=== PATIENT | male | born 1935 | race Caucasian/White ===

== ENCOUNTER 2017-01-05 16:24 | Inpatient (IN) | payer OTHER, MEDICAID ==
[~2017-01-05] VITALS: Ht 162.6 cm; Wt 131.5 kg
[~2017-01-05 16:24] MED LIST: ACT15 PO; AMLODIPINE BESYL5 M1 PO; CELEBREX200 MG PO; CLOPIDOGREL75 M1 PO; COR6 PO; ENALAPRIL MALEA20 MG PO; LASIX40 MG PO; METFORMIN HCL1000 MG PO; ZOCOR10 MG PO
[2017-01-05 17:21] LABS: BASOPHIL % 0.7 % (0-2); PLATELET COUNT 216 x10^3mcL (130-400)
[2017-01-05 17:26] LABS: CALCIUM 8.5 mg/dL (8.5-10.1); CARBON DIOXIDE 31.6 mmol/L (21-32); CHLORIDE SERUM 107 mmol/L (98-107); CREATININE SERUM 1.6 mg/dL (0.7-1.3); GLUCOSE SERUM 103 mg/dL (74-106); POTASSIUM SERUM 4.8 mmol/L (3.5-5.1); SODIUM SERUM 145 mmol/L (136-145)
[2017-01-05 17:30] LABS: ALKALINE PHOSPHATASE 111 U/L (46-116); ALT/SGPT 8 U/L (16-63); AST/SGOT 16 U/L (15-37); BILIRUBIN TOTAL 0.2 mg/dL (0.20-1.00); TOTAL PROTEIN, SERUM 7.7 g/dL (6.4-8.2)
[2017-01-05 17:33] LABS: ALBUMIN 2.7 g/dL (3.4-5.0)
[2017-01-05 17:54] LABS: CK-MB < 0.5 ng/mL (0-3.6); CREATINE KINASE 142 U/L (39-308)
[2017-01-05] MEDS ORDERED: ADULT LOW DOSE81 MG PO (18:11)
[2017-01-05] MEDS ORDERED: ALDACTONE25 MG PO (18:11)
[2017-01-05] MEDS ORDERED: EPZICOM1 TAB (18:14)
[2017-01-05] MEDS ORDERED: FERROUS SULFAT325 M2 PO (18:14)
[2017-01-05 20:39] LABS: CHOLESTEROL/HDL RATIO 2.5
[2017-01-05 20:42] LABS: T3 TOTAL 0.97 ng/mL
[2017-01-05 20:43] LABS: FREE T4 1.21 ng/dL (0.76-1.46); T4(THYROXINE) 5.8 ug/dL (4.7-13.3)
[2017-01-05 21:10] VITALS: BP 115/28
[2017-01-05 22:01] VITALS: BP 115/78
[2017-01-06 03:30] VITALS: BP 104/35
[2017-01-06 04:38] LABS: microscopic required? YES; urine erythrocyte TRACE (NEGATIVE)
[2017-01-06 05:25] VITALS: Ht 162.6 cm; Wt 131.5 kg
[2017-01-06 06:08] LABS: BASOPHIL % 0.4 % (0-2); PLATELET COUNT 190 x10^3mcL (130-400); RED CELL DISTRIBUTION WIDTH 14.1 % (11.5-14.5)
[2017-01-06 06:35] LABS: CALCIUM 8.5 mg/dL (8.5-10.1); CARBON DIOXIDE 30.4 mmol/L (21-32); CHLORIDE SERUM 104 mmol/L (98-107); CREATININE SERUM 1.5 mg/dL (0.7-1.3); GLUCOSE SERUM 105 mg/dL (74-106); MAGNESIUM 1.8 mg/dL (1.8-2.4); PHOSPHOROUS 3.7 mg/dL (2.5-4.9); POTASSIUM SERUM 4.1 mmol/L (3.5-5.1); SODIUM SERUM 140 mmol/L (136-145)
[2017-01-06 08:44] VITALS: BP 131/56
[2017-01-06 09:37] LABS: TOTAL IRON BINDING CAPACITY 310 ug/dL (250-450)
[2017-01-06 09:44] LABS: IRON 17 ug/dL (65-170); RED BLOOD CELLS 2.88 M/mm3 (4.52-5.90)
[2017-01-06 13:06] VITALS: BP 149/53
[2017-01-06 16:38] VITALS: BP 113/53
[2017-01-06 21:19] VITALS: BP 107/41
[2017-01-07 06:03] VITALS: BP 133/58
[2017-01-07 06:16] LABS: BASOPHIL % 0.6 % (0-2); PLATELET COUNT 184 x10^3mcL (130-400)
[2017-01-07 06:29] LABS: CALCIUM 8.3 mg/dL (8.5-10.1); CHLORIDE SERUM 102 mmol/L (98-107); CREATININE SERUM 1.9 mg/dL (0.7-1.3); GLUCOSE SERUM 119 mg/dL (74-106); POTASSIUM SERUM 4.8 mmol/L (3.5-5.1); SODIUM SERUM 137 mmol/L (136-145)
[2017-01-07 10:00] VITALS: BP 112/42
[2017-01-07] MEDS ORDERED: CLE150 PO (10:27)
[2017-01-07] MEDS ORDERED: LAC PO (10:28)
[2017-01-07] MEDS ORDERED: PHARMASSURE VI500 MG PO (10:43)
[2017-01-07] MEDS ORDERED: FERG PO (10:44)
[2017-01-07] MEDS ORDERED: NOR5 PO (13:18)
[2017-01-07 14:05] LABS: CALCIUM 8.1 mg/dL (8.5-10.1); CARBON DIOXIDE 30.8 mmol/L (21-32); CHLORIDE SERUM 101 mmol/L (98-107); CREATININE SERUM 1.8 mg/dL (0.7-1.3); GLUCOSE SERUM 134 mg/dL (74-106); POTASSIUM SERUM 4.7 mmol/L (3.5-5.1); SODIUM SERUM 136 mmol/L (136-145)
[2017-01-07] MEDS ORDERED: MUPIROCIN2% TOP ×2 (14:11→15:33)
[2017-01-07] MEDS ORDERED: HIB480 TP ×2 (14:12→15:33)
[2017-01-07 14:30] VITALS: BP 117/43
== END 2017-01-07 18:25 | disposition home health service (06) | DRG 602 ==
LOC: ED 16:24 → DU 19:22 → MU 01-07 07:09
PROVIDERS: Emergency Medicine; ADMIT Family Medicine
DX: L03.116 Cellulitis of left lower limb (principal); I50.43 Acute on chronic combined systolic (congestive) and diastolic (congestive) heart failure; E43 Unspecified severe protein-calorie malnutrition; Z68.43 Body mass index [BMI] 50.0-59.9, adult; I42.9 Cardiomyopathy, unspecified; E11.51 Type 2 diabetes mellitus with diabetic peripheral angiopathy without gangrene; J44.9 Chronic obstructive pulmonary disease, unspecified; I11.0 Hypertensive heart disease with heart failure; G47.33 Obstructive sleep apnea (adult) (pediatric); E66.01 Morbid (severe) obesity due to excess calories; D64.9 Anemia, unspecified; I87.2 Venous insufficiency (chronic) (peripheral); M19.90 Unspecified osteoarthritis, unspecified site; D50.9 Iron deficiency anemia, unspecified; I34.0 Nonrheumatic mitral (valve) insufficiency; I07.1 Rheumatic tricuspid insufficiency; Z96.653 Presence of artificial knee joint, bilateral; Z79.84 Long term (current) use of oral hypoglycemic drugs
CPT/HCPCS: 82962; 83880; 84439; J0696; J1940; J2270; J3490; J7030; J7040; Q0092